=== PATIENT | male | born 1950 | race Caucasian/White ===

== ENCOUNTER 2025-05-22 07:42 | Emergency (ER) | payer MEDICARE, BC ==
[~2025-05-22] VITALS: Ht 180.3 cm; Wt 79.5 kg
[2025-05-22 07:46] VITALS: TEMP 97.5
[2025-05-22 08:11] LABS: BILIRUBIN,URINE SMALL (Neg); CLARITY,URINE SLIGHTLY CLOUDY (Clear); COLOR,URINE BROWN (Yellow); GLUCOSE, URINE NEGATIVE (Neg); KETONES,URINE 15 mg/dl (Neg); LEUKOCYTE ESTERASE ,URINE NEGATIVE (Neg); NITRITES, URINE NEGATIVE (Neg); OCCULT BLOOD,URINE LARGE (Neg); PROTEIN,URINE 100 mg/dl (Neg)
[2025-05-22 08:20] LABS: UA COLLECTION TYPE CLN CATCH MIDSTREAM
[2025-05-22 08:25] LABS: BACTERIA,URINE FEW /HPF (Neg); MUCUS STRANDS FEW /LPF (Neg); RBC,URINE TNTC /HPF (0-2); SQUAMOUS EPITHELIAL CELL,UR FEW /LPF (FEW); TRANSITIONAL EPI CELLS,URINE FEW /HPF; WBC,URINE 0-4 /HPF (0-4)
[2025-05-22 10:08] LABS: BASOPHILS % (AUTO) 0.5 % (0-1); EOSINOPHILS # (AUTO) 0.1 X10'3 (0-0.9); EOSINOPHILS % (AUTO) 1.7 % (0-6); HEMATOCRIT 43.8 % (42.0-52.0); HEMOGLOBIN 14.9 g/dl (14.0-17.9); LYMPHOCYTES # (AUTO) 0.9 X10'3 (1.1-4.8); LYMPHOCYTES % (AUTO) 14.4 % (21-51); MEAN CORPUSCULAR HEMOGLOBIN 33.5 PG (27.0-31.0); MEAN CORPUSCULAR VOLUME 98.6 FL (78-98); MEAN PLATELET VOLUME 8.1 FL (7.4-10.4); MONOCYTES # (AUTO) 0.5 X10'3 (0-0.9); MONOCYTES % (AUTO) 8.3 % (2-12); NEUTROPHILS # (AUTO) 4.6 X10'3 (1.8-7.7); NEUTROPHILS % (AUTO) 75.1 % (42-75); PLATELET COUNT 218 X10'3 (140-440); RED BLOOD COUNT 4.45 X10'6 (4.70-6.10); RED CELL DISTRIBUTION WIDTH 13.1 % (11.5-14.5); WHITE BLOOD COUNT 6.1 X10'3 (4.5-11.0)
[2025-05-22 10:16] LABS: ALBUMIN 3.6 G/DL (3.4-5.0); ANION GAP 7 (8-16); BLOOD UREA NITROGEN 20 MG/DL (7-18); BUN/CREATININE RATIO 25.3 (10.0-20.0); CALCIUM 9.3 MG/DL (8.5-10.1); CHLORIDE 106 MMOL/L (99-107); CREATININE 0.79 MG/DL (0.60-1.10); GLUCOSE 93 MG/DL (70-104); POTASSIUM 3.7 MMOL/L (3.5-5.1); SODIUM 141 MMOL/L (135-145); TOTAL CARBON DIOXIDE 27.6 MMOL/L (24-32); eCRCL 86 ML/MIN; eGFR > 90 ML/MIN
[2025-05-22 10:22] LABS: APTT 27 SECONDS (22-32); INR 1.1 INR; PROTHROMBIN TIME 11.4 SECONDS (9.0-12.0)
[2025-05-22] MEDS ORDERED: iohexol 300mg/ml 100ml inj. ONE (10:22)
--- NOTE | 2025-05-22 11:39 | RADIOLOGY REPORT ---
CT CT ABDOMEN PELVIS W/ IV CONTRAST INDICATION: GROSS HEMATURIA EXAM DATE: 05/22/2025 10:25 AM COMPARISON: None RADIATION DOSE: CTDIvol: 16 mGy, DLP: 837 mGy*cm PROCEDURE: Helical CT images were obtained of the abdomen and pelvis with IV contrast Sagittal and co julian reconstructions are provided. ORAL CONTRAST: None. ADDITIONAL IMAGES / REFORMATS: None All CT s cans at this medical facility are performed using dose modulation techniques as appropriate to a perf ormed exam including the following: Automated exposure control was utilized; adjustment of the MA and /or KV according to patient size; and use of iterative reconstruction technique. FINDINGS: LUNG BASE: Right basilar rounded atelectasis. LIVER: Multiple liver cystic lesions with largest measure 5 cm. GALLBLADDER AND BILIARY TREE: No calcified gallstones. Normal caliber wall. No intra- or extrahepatic biliary ductal dilation. PANCREAS: Normal. SPLEEN: Normal. BOWEL: There is a moderate colonic fecal burden. No small bowel dilatation is seen. The appendix appe ars normal. ADRENALS: Normal. KIDNEYS AND URETER: There is bilateral punctate nonobstructive kidney stones. BLADDER: Normal. REPRODUCTIVE ORGANS: Normal. LYMPH NODES:No lymphadenopathy. PERITONEUM: No ascites or free air. No other fluid collection. VESSELS: Scattered atherosclerotic calcifications are noted. 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 RETROPERITONEUM: Normal. ABDOMINAL WALL: Normal. BONES: Scattered osseous degenerative changes are noted. IMPRESSION: No acute intraabdominal abnormality. There is bilateral punctate nonobstructive kidney stones. 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
--- NOTE | 2025-05-22 11:49 | Physician Documentation ---
History of Present Illness ~ Chief Complaint: Blood in Urine Stated Complaint: BLOOD IN URINE Time Seen by MD: 09:10 OK to notify your PCP?: Yes Primary Medical Doctor: dai Source: patient Mode of Arrival: POV Exam Limitations: no limitations HPI 75-year-old male with chief complaint painless gross hematuria which occurred when he urinated this morning. States he has never had anything like this before. Reports there were two small clots that were coming out of the urethra that he got toilet paper in got one of the clots out with toilet paper. He denies any pain, decreased urine stream were flow, fever, nausea, vomiting. Since he has been in the ER he states he urinated again and his urine was clear he did not see any blood. He is not on blood thinners. Medication Reconciliation Allergies: Coded Allergies: No Known Allergies (Unverified , 05/22/25) Past Medical History Past Medical History: No Pertinent History Review of Systems All Other Systems at this time: Reviewed and Negative Physical Exam Vital Signs: Temperature: 97.5, Source: Temporal, Heart Rate: 87, Respiratory Rate: 16, BP: 167/101, Pulse Oximetry: 99, Weight: 79.550 Oxygen Flow Rate: 0 Physical Exam General Appearance: Alert, WD/WN. NAD. HEENT: NCAT, PERRL, EOMI. Neck: Supple, trachea midline. Cardiovascular: RRR. No m/r/g. Lungs: CTAB. Breathing unlabored ABD: SOFT, NDNT. Extremities: Normal inspection. No edema. Skin: Warm/dry, normal color Neurological: Alert and oriented x4, normal gait. Psychiatric: Affect congruent with mood. Progress Results/Orders Results/Orders Orders - CHANTAL HOBBS Ct Abdomen Pelvis (05/22/25 10:30) Completed Orders - CHANTAL HOBBS Cbc/Diff (05/22/25 09:14) Pt Inr (05/22/25 09:14) PTT (05/22/25 09:14) BMP (05/22/25 09:14) Ct Abdomen Pelvis (05/22/25 10:30) Iohexol 300mg/Ml 100ml Inj. (Omnipaque-3 (05/22/25 10:22) Vital Signs 05/22/25 05/22/25 07:46 09:40 Temp 97.5 Pulse 87 Resp 16 B/P (MAP) 167/101 Pulse Ox 99 O2 Flow Rate 0 Laboratory Tests Test 05/22/25 07:49 05/22/25 09:30 Urine Specimen Description Cln catch midstream Urine Color Brown Urine Clarity Slightly cloudy Urine pH 6.0 Urine Specific [place] 1.025 Urine Protein 100 H Urine Glucose (UA) Negative Urine Ketones 15 H Urine Occult Blood Large H Urine Nitrite Negative Urine Bilirubin Small Urine Urobilinogen 2.0 H Urine Leukocyte Esterase Negative Urine RBC Tntc Urine WBC 0-4 Urine Squamous Epithelial Cells Few Urine Transitional Epithelial Cells Few Urine Bacteria Few Urine Mucus Few Urine Culture Indicated Not ind Volume Urine Centrifuged 10 ml Urine Comment White Blood Count 6.1 Red Blood Count 4.45 L Hemoglobin 14.9 Hematocrit 43.8 Mean Corpuscular Volume 98.6 H Mean Corpuscular Hemoglobin 33.5 H Mean Corpuscular Hemoglobin Concent 34.0 Red Cell Distribution Width 13.1 Platelet Count 218 Mean Platelet Volume 8.1 Neutrophils (%) (Auto) 75.1 H Lymphocytes (%) (Auto) 14.4 L Monocytes (%) (Auto) 8.3 Eosinophils (%) (Auto) 1.7 Basophils (%) (Auto) 0.5 Neutrophils # (Auto) 4.6 Lymphocytes # (Auto) 0.9 L Monocytes # (Auto) 0.5 Eosinophils # (Auto) 0.1 Basophils # (Auto) 0.0 CBC Comment Prothrombin Time 11.4 INR International Normalized Ratio 1.1 Activated Partial Thromboplast Time 27 Coagulation Comments Sodium Level 141 Potassium Level 3.7 Chloride Level 106 Carbon Dioxide Level 27.6 Anion Gap 7 L Blood Urea Nitrogen 20 H Creatinine 0.79 Estimated GFR/1.73 m2 > 90 BUN/Creatinine Ratio 25.3 H Glucose Level 93 Calcium Level 9.3 Albumin 3.6 Chemistry Comments Medical Decision Making Urinary Diff Dx:Considerations: Include: AAA, Aortic dissection, Appendicitis, Appendicitis train, Bowel obstruction, Bladder outlet obstruc., Cholelithiasis, Choleangitis, Cholecystitis, DJD, Epididymitis, Hepatitis, HNP, Impaction, Musculoskeletal pain, Pancreatitis, Postoperative Comp., Prostatitis, Pyelonephritis, Renal failure, Renal infarction, Strain, Urolithiasis, Urinary Obstruction, Urethritis, Urinary retention, UTI, Other Departure Time of Disposition: 11:46 Disposition: 01 HOME / SELF CARE / HOMELESS Impression: Primary Impression: Gross hematuria Condition: Stable Discharge Instructions: Hematuria, Adult Additional Instructions: Please follow up with her primary care provider Dr. Galvin to get a referral to Urology due to the amount of blood that was in your urine today without evidence for infection or any other underlying etiology. Your kidney function was excellent. Your hemoglobin and hematocrit were normal. Your CT scan did not reveal a cause for the blood that you had an your urine today that has since resolved since you have been in the ER. Next step is to get referral to urology for cystoscopy to further assess the bladder. CT ABDOMEN PELVIS W/ IV CONTRAST INDICATION: GROSS HEMATURIA EXAM DATE: 05/22/2025 10:25 AM COMPARISON: None RADIATION DOSE: CTDIvol: 16 mGy, DLP: 837 mGy*cm PROCEDURE: Helical CT images were obtained of the abdomen and pelvis with IV contrast Sagittal and coronal reconstructions are provided. ORAL CONTRAST: None. ADDITIONAL IMAGES / REFORMATS: None All CT scans at this medical facility are performed using dose modulation techniques as appropriate to a performed exam including the following: Automated exposure control was utilized; adjustment of the MA and/or KV according to patient size; and use of iterative reconstruction technique. FINDINGS: LUNG BASE: Right basilar rounded atelectasis. LIVER: Multiple liver cystic lesions with largest measure 5 cm. GALLBLADDER AND BILIARY TREE: No calcified gallstones. Normal caliber wall. No intra- or extrahepatic biliary ductal dilation. PANCREAS: Normal. SPLEEN: Normal. BOWEL: There is a moderate colonic fecal burden. No small bowel dilatation is seen. The appendix appears normal. ADRENALS: Normal. KIDNEYS AND URETER: There is bilateral punctate nonobstructive kidney stones. BLADDER: Normal. REPRODUCTIVE ORGANS: Normal. LYMPH NODES:No lymphadenopathy. PERITONEUM: No ascites or free air. No other fluid collection. VESSELS: Scattered atherosclerotic calcifications are noted. 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 RETROPERITONEUM: Normal. ABDOMINAL WALL: Normal. BONES: Scattered osseous degenerative changes are noted. IMPRESSION: No acute intraabdominal abnormality. There is bilateral punctate nonobstructive kidney stones. 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 DO NOT Referrals: NO PRIMARY CARE PROVIDER (PCP) Education Educated: Patient Educated regarding: diagnosis, treatment, need for follow up Signature Scribe Signature: x Attestation: CHANTAL Abdi May 22, 2025 11:49
[2025-05-22 12:01] VITALS: BP 156/87; PULSE 79; RESP 16; O2SAT 98
== END 2025-05-22 12:03 | disposition home or self-care (01) ==
LOC: ER 07:43
DX: R31.0 Gross hematuria (principal)
CPT/HCPCS: 36415; 74177; 80048; 81001; 85025; 85610; 85730; 99285; Q9967